=== PATIENT | female | born 1975 | race Caucasian/White ===

== ENCOUNTER 2017-02-02 08:01 | Day surgery (SDC) | payer OTHER ==
[2017-02-02] MEDS ORDERED: PROPOFOL 10 MG/ML VIAL IV ONE (14:00)
[2017-02-02] MEDS ORDERED: LIDOCAINE 2% MDV (20MG/ML) 20ML VIAL IV ONE (14:00)
[2017-02-02] MEDS ORDERED: MIDAZOLAM HCL 2MG/2ML VIAL IV ONE (14:00)
--- NOTE | 2017-02-06 10:00 | Operative Note ---
DATE OF SURGERY: 02/02/2017 OPERATION: COLONOSCOPY with cold forceps polypectomy. PREOPERATIVE DIAGNOSIS: Family history of colon cancer. POSTOPERATIVE DIAGNOSIS: Ascending colon polyp. PREPARATION QUALITY: Excellent. ESTIMATED BLOOD LOSS: Minimal. SPECIMENS: Ascending colon polyp. COMPLICATIONS: None apparent. PROCEDURE: After informed consent was obtained from the patient, she was placed in the left lateral decubitus position in the endoscopy suite. She was sedated and monitored by the department of anesthesia. Digital rectal examination was unremarkable. A well-lubricated VOS337 colonoscope was inserted into the rectum and advanced to the cecum. The cecum, ileocecal valve, and appendiceal orifice were unremarkable. The ascending colon revealed a 3-4 mm sessile polyp removed with a cold forceps. Minimal bleeding was noted at the site. The remainder of the ascending colon, transverse colon, descending colon, sigmoid colon, and rectum were unremarkable. J-turn views of the anorectum were unrevealing. The endoscope was straightened, the rectal ampulla deflated, and the endoscope was removed. RECOMMENDATIONS: The patient should resume her diet. She should undergo repeat exam in 5 years pending tissue histology. As always, thank you for allowing me to participate in the healthcare of your patients. CC: Dr. Bindu ALCARAZ
== END 2017-02-02 10:15 | disposition home or self-care (01) ==
LOC: HOP 08:01
PROVIDERS: ATTEND Internal Medicine Gastroenterology
DX: Z12.11 Encounter for screening for malignant neoplasm of colon (principal); D12.2 Benign neoplasm of ascending colon; Z80.0 Family history of malignant neoplasm of digestive organs; E03.9 Hypothyroidism, unspecified
CPT/HCPCS: 81025